=== PATIENT | female | born 1965 | race Caucasian/White ===

== ENCOUNTER 2018-05-10 08:44 | Emergency (ER) | payer SELFPAY ==
[2018-05-10] MEDS ORDERED: HYDROmorphone 1 MG/ML Syringe IVPUSH ONE (09:03)
[2018-05-10] MEDS ORDERED: Metoclopramide 10 MG/2 ML SDV IVPUSH ONE (09:03)
[2018-05-10] MEDS ORDERED: Hyoscyamine 0.125 MG Tab.SL SL ONE (09:03)
--- NOTE | 2018-05-10 09:09 | EDM.PDOC ---
ED HPI GENERAL MEDICAL PROBLEM - General Chief Complaint: Chest Pain Stated Complaint: CHEST PAIN/NAUSEA Time Seen by Provider: 05/10/18 09:02 Source of Information: Reports: Patient History Limitations: Reports: No Limitations - History of Present Illness INITIAL COMMENTS - FREE TEXT/NARRATIVE: 52-year-old female presents to the ED with diffuse central chest pressure discomfort particularly lower retrosternal area and epigastrium. We did slightly through to her back. She states she thought she was having a dream about having chest pain and when she woke around 0 6:00 she was in fact having significant chest discomfort. Last meal was 1930 hrs. last night she went to bed about 2130 hrs. filling 5 she states there is some burping and belching to try and relieve the discomfort. She does have a burning intense pain in the epigastrium that seems to radiate under both breasts. This makes her feel short of breath or difficulty take a full deep breath. Has no known heart disease. He states she is a smoker. Onset: Today Onset Date: 05/10/18 Onset Time: 06:00 Duration: Hour(s): Location: Reports: Chest, Abdomen (Lower retrosternal chest pressure discomfort) Quality: Reports: Ache ( epigastrium pressure discomfort with a burning component), Burning, Pressure Severity: Moderate Improves with: Reports: Other (Perhaps a little relief with burping and belching.) Worsens with: Reports: Other Context: Reports: Other. Denies: Activity (Can't take a full deep breath as it makes it worse.), Exercise, Lifting, Sick Contact, Trauma Associated Symptoms: Reports: Chest Pain, Loss of Appetite, Shortness of Breath. Denies: No Other Symptoms, Confusion (Lower retrosternal pressure discomfort behind the breast bone), Cough (Awoke with symptoms this morning about 0600 hrs.), cough w sputum, Diaphoresis, Fever/Chills, Malaise, Nausea/ Vomiting, Seizure, Syncope Treatments [employer]GER: Reports: Other (see below) (None.) Chest Pain Score (Numeric/FACES): 4 - Related Data Allergies Allergy/AdvReac Type Severity Reaction Status Date / Time No Known Allergies Allergy Verified 05/10/18 08:54 Home Meds: Home Meds Dicyclomine [Bentyl] 20 mg PO Q6H PRN #6 tablet 05/10/18 [Rx] Past Medical History - Past Surgical History Female Surgical History: Reports: Tubal Ligation Social & Family History - Tobacco Use Smoking Status *Q: Former Smoker Used Tobacco, but Quit: No - Caffeine Use Caffeine Use: Reports: Coffee, Tea - Recreational Drug Use Recreational Drug Use: No - Living Situation & Occupation Living situation: Reports: Occupation: Employed ED ROS GENERAL - Review of Systems Review Of Systems: See Below Constitutional: Reports: Decreased Appetite. Denies: Fever, Chills, Malaise, Weakness, Weight Loss HEENT: Reports: No Symptoms Respiratory: Reports: Shortness of Breath. Denies: Wheezing, Pleuritic Chest Pain, Cough, Sputum Cardiovascular: Reports: Chest Pain. Denies: Blood Pressure Problem GI/Abdominal: Reports: Abdominal Pain (See history of present illness) : Reports: No Symptoms Musculoskeletal: Reports: No Symptoms Skin: Reports: No Symptoms Neurological: Reports: No Symptoms Psychiatric: Reports: No Symptoms ED EXAM, GENERAL - Physical Exam Exam: See Below Exam Limited By: No Limitations General Appearance: Alert, WD/WN, Moderate Distress (In obvious discomfort.) Eye Exam: Bilateral Eye: Normal Inspection (No jaundice.) Throat/Mouth: Normal Inspection, Normal Lips, Normal Oropharynx Head: Atraumatic, Normocephalic Neck: Normal Inspection, Supple, Non-Tender, Full Range of Motion. No: Lymphadenopathy (L), Lymphadenopathy (R) Respiratory/Chest: Lungs Clear, Normal Breath Sounds, Chest Non-Tender, Respiratory Distress (Mild tachypnea. She splinting respirations it's painful to take a full deep breath.), Splinting Cardiovascular: Normal Peripheral Pulses, Regular Rate, Rhythm, No Edema, No Gallop, No Murmur, No Rub Peripheral Pulses: 3+: Posterior Tibial (L), Posterior Tibial (R), Dorsalis Pedis (L), Dorsalis Pedis (R) GI/Abdominal: Normal Bowel Sounds, Soft, No Organomegaly, Distended (Tenderness and fullness sensation in the epigastrium. This areas also temp at age percussion. Epigastrium.), Tender Back Exam: Normal Inspection, Full Range of Motion. No: CVA Tenderness (L), CVA Tenderness (R) Extremities: Normal Inspection, Normal Range of Motion, Non-Tender, No Pedal Edema, Pedal Edema Neurological: Alert, Oriented, CN II-XII Intact, Normal Cognition, Normal Gait Psychiatric: Anxious Skin Exam: Warm, Dry, Intact, Normal Color, No Rash EKG INTERPRETATION EKG Date: 05/10/18 Time: 09:06 Rhythm: NSR Rate (Beats/Min): 70 [place]: LAD-Left [place] Deviation (-33) P-Wave: Present QRS: Other (Incomplete right bundle branch block pattern decreased voltage limb leads.) ST-T: Other (Diffuse early repolarization pattern with no signs of ischemia.) QT: Normal EKG Interpretation Comments: Borderline ECG Course - Vital Signs Last Recorded V/S: Last Vital Signs Temp 37.1 C 05/10/18 08:51 Pulse 76 05/10/18 08:51 Resp 18 05/10/18 08:51 BP 130/82 05/10/18 08:51 Pulse Ox 97 05/10/18 08:51 - Orders/Labs/Meds Orders: Active Orders 24 hr Category Date Time Status EKG Documentation Completion [RC] ASDIRECTED Care 05/10/18 08:56 Inactive EKG Documentation Completion [RC] STAT Care 05/10/18 09:04 Active Sodium Chloride 0.9% [Normal Saline] 1,000 ml Med 05/10/18 09:15 Active IV ASDIRECTED EKG 12 Lead [EK] Stat Ther 05/10/18 08:56 Stop Req Medication Orders Sodium Chloride (Normal Saline) 1,000 mls @ 150 mls/hr IV ASDIRECTED BO Last Admin: 05/10/18 09:20 Dose: 150 mls/hr Labs: Laboratory Tests 05/10/18 05/10/18 Range/Units 09:04 09:04 WBC 5.68 (3.98-10.04) K/mm3 RBC 4.43 (3.98-5.22) M/mm3 Hgb 14.5 (11.2-15.7) gm/L Hct 43.2 (34.1-44.9) % MCV 97.5 H (79.4-94.8) fl MCH 32.7 H (25.6-32.2) pg MCHC 33.6 (32.2-35.5) g/dl RDW Std Deviation 43.9 (36.4-46.3) fL Plt Count 272 (182-369) K/mm3 MPV 10.0 (9.4-12.3) fl Neutrophils % (Manual) 62 H (40-60) % Band Neutrophils % 0 (0-10) % Lymphocytes % (Manual) 32 (20-40) % Atypical Lymphs % 0 % Monocytes % (Manual) 6 (2-10) % Eosinophils % (Manual) 0 L (0.7-5.8) % Basophils % (Manual) 0 L (0.1-1.2) Platelet Estimate Adequate RBC Morph Comment Normal Sodium 141 (136-145) mEq/L Potassium 4.1 (3.5-5.1) mEq/L Chloride 106 (98-107) mEq/L Carbon Dioxide 26 (21-32) mEq/L Anion Gap 13.1 (5-15) BUN 11 (7-18) mg/dL Creatinine 0.7 (0.55-1.02) mg/dL Est Cr Clr Drug Dosing 81.18 mL/min Estimated GFR (MDRD) > 60 (>60) mL/min BUN/Creatinine Ratio 15.7 (14-18) Glucose 96 (74-106) mg/dL Calcium 8.6 (8.5-10.1) mg/dL Total Bilirubin 0.5 (0.2-1.0) mg/dL AST 16 (15-37) U/L ALT 27 (14-59) U/L Alkaline Phosphatase 62 (46-116) U/L CK-MB (CK-2) 0.9 (0-3.6) ng/ml Troponin I < 0.017 (0.00-0.056) ng/mL Total Protein 7.6 (6.4-8.2) g/dl Albumin 3.8 (3.4-5.0) g/dl Globulin 3.8 gm/dL Albumin/Globulin Ratio 1.0 (1-2) Lipase 125 (73-393) U/L Meds: Medications Generic Name Dose Route Start Last Admin Trade Name Freq PRN Reason Stop Dose Admin Sodium Chloride 1,000 mls @ 150 mls/hr 05/10/18 09:15 05/10/18 09:20 Normal Saline IV 150 mls/hr ASDIRECTED BO Administration Discontinued Medications Generic Name Dose Route Start Last Admin Trade Name Freq PRN Reason Stop Dose Admin Dicyclomine HCl 20 mg 05/10/18 10:13 05/10/18 10:18 Bentyl PO 05/10/18 10:14 20 mg ONETIME ONE Administration Hydromorphone HCl 0.5 mg 05/10/18 09:03 05/10/18 09:21 Dilaudid IVPUSH 05/10/18 09:04 0.5 mg ONETIME ONE Administration Hyoscyamine 0.125 mg 05/10/18 09:03 05/10/18 09:22 Hyomax-Sl SL 05/10/18 09:04 0.125 mg ONETIME ONE Administration Metoclopramide HCl 7.5 mg 05/10/18 09:03 05/10/18 09:22 Reglan IVPUSH 05/10/18 09:04 7.5 mg ONETIME ONE Administration - Radiology Interpretation Free Text/Narrative:: 52-year-old female presents to the ED with diffuse epigastric abdominal pressure discomfort which radiates up into her lower retrosternal chest. She states she awoke with this discomfort about 0600 hrs. this morning. Burping and belching seems to relieve the discomfort a little. She did not roll prone to heartburn. She does not know she has a hiatal hernia. Pain radiate slightly through to her mid back. Pain does not appear to be cardiac in etiology. Exam reveals tenderness and some increased tympany to percussion in the epigastrium. Suspect hiatal hernia. Plan Levsin 0.125 mg sublingual. IV will be started will be normal saline at 150 mils per hour. Given Dilaudid 0.5 mg IV with Reglan 7.5 mg IV. Labs ordered including cardiac markers and lipase. ECG shows sinus rhythm at 70/m with a left axis deviation of -33. There is some decreased low voltage in the limb leads but no signs of ischemia. - Re-Assessments/Exams Free Text/Narrative Re-Assessment/Exam: 05/10/18 10:10 patient is feeling better she reports pain is about 70% better and the nausea is better. Much less pressure and pain on palpation in her epigastrium. The chest x-ray is completely normal. X-ray of the enema shows scattered throughout the colon with no signs of obvious obstruction. 05/10/18 10:12 Labs reveal a normal white count at 5.68 with 62% neutrophils no bands. Hemoglobin is 14.5 with hematocrit of 43.2. MCV is elevated at 97.5. Turn 72,000. Sodium 141 with potassium 4.1. Chloride 106 with a bicarbonate 26. And a gap is 13.1 BUN is 11 with a creatinine of 0.7. GFR remains greater than 60. Glucose is 96 with a calcium of 8.6.. Bilirubin is 0.5 liver function is otherwise normal. CK-MB is 0.9 with a troponin I of less than 0.017. Total protein is 7.6. Albumin fraction is 3.8 lipase normal 125. 05/10/18 11:25 Patient drank Gatorade with no problem. Pain is completely gone. Suspect hiatal hernia as a cause of her discomfort. Certainly no evidence of cardiac related illness. She'll therefore be discharged to home. Note given to excuse him from the workplace today. Going to give her 6 tablets of Bentyl 20 mg strength to be used on a when necessary basis for similar type pain. If problems persist she will have to see her primary care physician to arrange for upper GI endoscopy or upper GI series to prove that she has a hiatal hernia and how bad it is and whether or not it warrants consultation for fundoplication. Departure - Departure Time of Disposition: 11:27 Disposition: Home, Self-Care 01 Condition: Fair Clinical Impression: Non-cardiac chest pain, Hiatal hernia with GERD Prescriptions: Dicyclomine [Bentyl] 20 mg PO Q6H PRN #6 tablet PRN Reason: Abdominal cramps/diarrhea Instructions: Hiatal Hernia Referrals: PCP,Not In Area [Primary Care Provider] - Forms: ED Department Discharge, ED Return to Work/School Form Additional Instructions: Evaluation in the emergency room today in regards to development of significant epigastric and lower retrosternal chest pressure discomfort that awoke him from sleep around 0600 hrs. this morning. By history you have intermittent problems with reflux disease. Complete cardiac workup done through the ED today shows no evidence of heart related illness. It is suspect that you have a hiatal hernia which means her stomach partially slid up through the opening in the diaphragm where the food pipe traverses to the stomach which created your chest pain and epigastric abdominal pain. This often can occur at nighttime during sleep when the effect of gravity is gone. It is made worse if we go to bed with a full stomach. We usually advise no thing to eat or drink for at least 3 hours before retiring for the night. Labs and x-rays all turned out to be normal as well. You 're treated in the ED with medications to relieve pain primarily and relax the opening in the diaphragm where the food pipe traverses. Appears that this was successful as her pain resolved and you're able to drink fluids without any issues. He will need the rest the day off from work and in no was given in this regard. I will send you home with a prescription for Bentyl 20 mg tablet which is what you've received in the ED. You could have this on hand and if you develop similar type pain he may take one tablet and he takes about 45 minutes to work should relieve a good portion of the epigastric abdominal pain. If problems persist then follow-up with your primary care physician to arrange for a surgeon to do an upper GI endoscopy. - My Orders Last 24 Hours: My Active Orders 05/10/18 08:56 EKG Documentation Completion [RC] ASDIRECTED EKG 12 Lead [EK] Stat 05/10/18 09:04 EKG Documentation Completion [RC] STAT 05/10/18 09:15 Sodium Chloride 0.9% [Normal Saline] 1,000 ml IV ASDIRECTED - Assessment/Plan Last 24 Hours: My Active Orders 05/10/18 08:56 EKG Documentation Completion [RC] ASDIRECTED EKG 12 Lead [EK] Stat 05/10/18 09:04 EKG Documentation Completion [RC] STAT 05/10/18 09:15 Sodium Chloride 0.9% [Normal Saline] 1,000 ml IV ASDIRECTED
[2018-05-10] MEDS ORDERED: Sodium Chloride 0.9% 1,000 ML IV SCH (09:15)
[2018-05-10] MEDS ORDERED: Dicyclomine 10 MG Cap PO ONE (10:13)
--- NOTE | 2018-05-10 10:38 | CR ---
Abdomen: Supine view of the abdomen was obtained. Comparison: No prior abdominal imaging. Scoliosis and mild degenerative change are seen within the spine. IUD is present. Several calcifications are present within the pelvis compatible with phleboliths. Bowel gas pattern is normal. Impression: 1. Nothing acute is seen. Incidental findings. Diagnostic code #2
--- NOTE | 2018-05-10 10:38 | CR ---
Chest: Frontal view of the chest was obtained. Comparison: No prior chest x-ray. Heart size and mediastinum are normal. Slight thoracic scoliosis is present. Lungs are clear without acute parenchymal change. No pneumothorax is seen. Impression: 1. Incidental finding. Nothing acute is seen on frontal chest x-ray. Diagnostic code #2
== END 2018-05-10 11:53 | disposition home or self-care (01) ==
LOC: JD.ED 08:44
DX: K44.9 Diaphragmatic hernia without obstruction or gangrene (principal); K21.9 Gastro-esophageal reflux disease without esophagitis; Z98.51 Tubal ligation status; Z87.891 Personal history of nicotine dependence
CPT/HCPCS: 36415; 71045; 74018; 80053; 82553; 83690; 84484; 85007; 85027; 93005; 96361; 96374; 96375; 99285; A9270; J1170; J2765; J7040; 93010

== ENCOUNTER 2021-05-23 03:16 | Emergency (ER) | payer BC, MEDICAID | END 2021-05-23 04:30 | disposition home or self-care (01) | LOC: JD.ED 03:16 | DX: S20.211A Contusion of right front wall of thorax, initial encounter (principal); S63.502A Unspecified sprain of left wrist, initial encounter; W01.0XXA Fall on same level from slipping, tripping and stumbling without subsequent striking against object, initial encounter | CPT/HCPCS: 71101-26-RT; 71101-RT; 73110-26-LT; 73110-LT; 99283-25 ==

== ENCOUNTER 2021-09-25 13:29 | Emergency (ER) | payer BC | END 2021-09-25 17:21 | disposition home or self-care (01) | LOC: JD.ED 13:29 | DX: B34.9 Viral infection, unspecified (principal); Z86.16 Personal history of COVID-19; Z20.822 Contact with and (suspected) exposure to COVID-19 | CPT/HCPCS: 36415; 70450; 70450-26; 71045; 71045-26; 80053; 81001; 83735; 84443; 84484; 85025; 85610; 87086; 93005; 99285-25; U0002 ==

== ENCOUNTER 2021-11-26 08:04 | Day surgery (SDC) | payer BC ==
[~2021-11-26 08:04] MED LIST: Lactated Ringers 1,000 ML IV SCH; Lidocaine 1%/Sod Bicarbonate in NS 8.4% 1 ML Syringe IDERM PRN; Sodium Chloride 0.9% 10 ML Syringe FLUSH PRN; Sodium Chloride 0.9% 10 ML Syringe FLUSH SCH
[2021-11-26] MEDS ORDERED: Propofol 200 MG/20 ML SDV ONE ×3 (08:58→09:31)
[2021-11-26] MEDS ORDERED: Midazolam 1 MG/ML 2 ML SDV ONE (08:59)
== END 2021-11-26 11:40 | disposition home or self-care (01) ==
LOC: JD.SDS 08:04
PROVIDERS: ATTEND Surgery
DX: Z12.11 Encounter for screening for malignant neoplasm of colon (principal); K44.9 Diaphragmatic hernia without obstruction or gangrene; K21.9 Gastro-esophageal reflux disease without esophagitis; N39.0 Urinary tract infection, site not specified; F41.9 Anxiety disorder, unspecified; J45.909 Unspecified asthma, uncomplicated; G80.9 Cerebral palsy, unspecified; Z79.899 Other long term (current) drug therapy; Z98.51 Tubal ligation status; Z98.890 Other specified postprocedural states; Z87.891 Personal history of nicotine dependence; Z78.9 Other specified health status
CPT/HCPCS: 43239; 45378; J2250; J2704; J7120; 00813